=== PATIENT | female | born 1995 | race Caucasian/White ===

== ENCOUNTER 2017-04-18 20:45 | Emergency (ER) | payer BC ==
[~2017-04-18] VITALS: Ht 154.9 cm; Wt 68.2 kg
[2017-04-18 20:48] VITALS: BP 150/81; PULSE 96; TEMP 98.9
[2017-04-18] MEDS ORDERED: AMOXICILLIN 8751 TAB PO (21:14)
== END 2017-04-18 22:40 | disposition home or self-care (01) ==
LOC: COL.ER 20:45
DX: S01.411A Laceration without foreign body of right cheek and temporomandibular area, initial encounter (principal); W54.0XXA Bitten by dog, initial encounter; Y92.89 Other specified places as the place of occurrence of the external cause

== ENCOUNTER 2017-04-21 10:49 | Outpatient (RCR) | payer OTHER ==
[~2017-04-21 10:49] MED LIST: AMOXICILLIN 8751 TAB PO
[2017-05-17] MEDS ORDERED: BLISOVI 24 FE1 EACH PO (19:40)
== END 2017-07-20 | disposition home or self-care (01) ==
LOC: WSOH
DX: Z48.02 Encounter for removal of sutures (principal); W54.0XXA Bitten by dog, initial encounter; Y99.0 Civilian activity done for income or pay

== ENCOUNTER 2017-05-17 19:27 | Emergency (ER) | payer OTHER ==
[~2017-05-17] VITALS: Ht 154.9 cm; Wt 68.2 kg
[2017-05-17 19:37] VITALS: BP 159/91
[2017-05-17] MEDS ORDERED: BLISOVI 24 FE1 EACH PO (19:40)
[2017-05-17 20:47] LABS: COLLECTION METHOD CLEAN CATCH
[2017-05-17 20:53] LABS: MUCOUS Present /lpf; PH 6 (5-8); URINE APPEARANCE Hazy; URINE BACTERIA Rare /hpf; URINE BILIRUBIN Negative (NEGATIVE); URINE BLOOD Negative (NEGATIVE); URINE COLOR Yellow; URINE GLUCOSE Negative (NEGATIVE); URINE KETONE Trace (NEGATIVE); URINE LEUKOCYTE ESTERASE Negative (NEGATIVE); URINE NITRATE Negative (NEGATIVE); URINE PROTEIN(semi-quant) Negative (NEGATIVE); URINE RBC 0-2 /hpf; URINE UROBILINOGEN >=4.0 mg/dL (NEGATIVE)
[2017-05-17 21:00] VITALS: PULSE 94; TEMP 99.3
== END 2017-05-17 21:17 | disposition home or self-care (01) ==
LOC: COL.ER 19:27
PROVIDERS: Physician Assistant
DX: M54.5 Low back pain (principal); W22.8XXA Striking against or struck by other objects, initial encounter